=== PATIENT | male | born 1935 | race Caucasian/White ===

== ENCOUNTER → 2017-08-22 | Outpatient (REF) | payer MEDICARE ==
[~2017-08-22] MED LIST: AMLO-98 PO; ASPI-1471 PO; DONE10TA64 PO; MEMA10TA19 PO; OLAN2.5T20 PO
== END ==
LOC: ZZLCC 20:29
PROVIDERS: ATTEND Family Medicine
DX: R42 Dizziness and giddiness (principal)
CPT/HCPCS: 82040; 82247; 82310; 82374; 82435; 82565; 82947; 84075; 84132; 84155; 84295; 84443; 84450; 84460; 84520; 85027

== ENCOUNTER → 2017-09-06 | Outpatient (REF) | payer MEDICARE, BC | LOC: ZZLCC 11:20 | PROVIDERS: ATTEND Family Medicine | DX: N39.0 Urinary tract infection, site not specified (principal) | CPT/HCPCS: 82040; 82247; 82310; 82374; 82435; 82565; 82947; 84075; 84132; 84155; 84295; 84450; 84460; 84520; 85027 ==

== ENCOUNTER 2017-11-16 00:35 | Emergency (ER) | payer BC, MEDICARE ==
[2017-11-16 00:38] VITALS: BP 132/89
--- NOTE | 2017-11-16 00:42 | ER Report ---
History and Physical Time Seen By MD: 00:34 HPI/ROS CHIEF COMPLAINT: Fall HISTORY OF PRESENT ILLNESS: 82-year-old male brought from [facility] after ground-level fall. Patient denies any injuries. On arrival. He states he caught himself so he didn't fall hard. There is some crusted blood at the end of his nose and on his hands. He has movement of all extremities. Patient has dementia. Patient is DO NOT RESUSCITATE. REVIEW OF SYSTEMS: Respiratory: No cough, no dyspnea. Cardiovascular: No chest pain, no palpitations. Gastrointestinal: No vomiting, no abdominal pain. Musculoskeletal: No back pain. Allergies: Coded Allergies: No Known Allergies (Verified Allergy, Unknown, 03/27/11) Home Meds Reported Medications Aspirin (ASPIR 81) 81 Mg Tablet.dr, 1 TAB PO QDAY, TAB 07/24/17 Olanzapine (Zyprexa) 2.5 Mg Tablet, 2.5 MG PO HS, #30 0 Refills 04/04/11 Memantine Hcl (Namenda) 10 Mg Tablet, 10 MG PO BID, #30 0 Refills 04/04/11 Donepezil Hcl (Aricept) 10 Mg Tablet, 10 MG PO BID, #30 0 Refills 04/04/11 Amlodipine Besylate (Amlodipine Besylate) 10 Mg Tablet, 10 MG PO DAILY for 30 Days, 0 Refills 04/04/11 Hx Smoking: No Hx Alcohol Use: No Constitutional Vital Sign - Last 24 Hours 11/16/17 00:38 Temp 97.8 Pulse 65 Resp 19 B/P (MAP) 132/89 Pulse Ox 95 O2 Delivery Room Air Physical Exam General Appearance: The patient is alert, has no immediate need for airway protection and no current signs of toxicity. Palpation of the head and neck reveal no tenderness or trauma HEENT: Pupils equal and round no injection. There is some crusted blood in the right nares. There is no cheryl bleeding. There is no nasal tenderness. Oropharynx is without dental trauma Respiratory: Chest is non tender, lungs are clear to auscultation. No chest wall tenderness Cardiac: regular rate and rhythm Gastrointestinal: Abdomen is soft and non tender, no masses, bowel sounds normal. Musculoskeletal: Neck: Neck is supple and non tender. Extremities have full range of motion and are non tender. Skin: No rashes or lesions. DIFFERENTIAL DIAGNOSIS: After history and physical exam differential diagnosis was considered for fall in the elderly including but not limited to intracranial injury, long bone and pelvic bone fracture, spinal injury, and intrathoracic injury. Medical Decision Making ED Course/Re-evaluation ED Course Patient was admitted to an examination room. H&P was done. The differential diagnoses was considered. On clinical examination. Patient has no obvious signs of injuries. He voices no complaints. He seems to be good spirits. He is alert and oriented. custodial noted that he might be hypotensive. EMS as documented 2 good blood pressures in route. His blood pressure here is normal. I see no indication for diagnostic tests at this time. Patient be returned to the residential. Decision to Disposition Date: Nov 16, 2017 Decision to Disposition Time: 00:40 Depart Departure Latest Vital Signs Vital Signs Date Time Temp Pulse Resp B/P (MAP) Pulse Ox O2 Delivery O2 Flow Rate FiO2 11/16/17 00:38 97.8 65 19 132/89 95 Room Air Impression: Primary Impression: Fall Additional Impressions: Epistaxis Dementia Do not resuscitate Condition: Improved Disposition: HOME OR SELF-CARE Patient Instructions: GENERAL ER DISCHARGE INSTRUCTIONS Additional Instructions: Return to residential, resume previous care Problem Qualifiers Primary Impression: Fall Encounter type: initial encounter Qualified Codes: W19.XXXA - Unspecified fall, initial encounter Additional Impressions: Dementia Dementia type: unspecified type Dementia behavioral disturbance: without behavioral disturbance Qualified Codes: F03.90 - Unspecified dementia without behavioral disturbance NAOMI ORTEGA DO Nov 16, 2017 00:42
== END 2017-11-16 00:55 | disposition home or self-care (01) ==
LOC: ER 00:44
DX: R04.0 Epistaxis (principal); F03.90 Unspecified dementia, unspecified severity, without behavioral disturbance, psychotic disturbance, mood disturbance, and anxiety; W17.89XA Other fall from one level to another, initial encounter
CPT/HCPCS: 99281

== ENCOUNTER → 2017-11-16 | Outpatient (CLI) | payer MEDICARE | LOC: AMB 01:01 | PROVIDERS: ATTEND Nurse Practitioner | DX: R53.1 Weakness (principal) | CPT/HCPCS: A0425; A0428 ==

== ENCOUNTER → 2017-11-16 | Outpatient (CLI) | payer MEDICARE | LOC: AMB 00:16 | PROVIDERS: ATTEND Nurse Practitioner | DX: R53.1 Weakness (principal); I95.9 Hypotension, unspecified; W19.XXXA Unspecified fall, initial encounter; Y93.9 Activity, unspecified; Y92.9 Unspecified place or not applicable; Y99.9 Unspecified external cause status | CPT/HCPCS: A0425; A0429 ==

== ENCOUNTER → 2018-01-14 | Outpatient (REF) | payer MEDICARE, MEDICAID ==
[2018-01-14 14:51] LABS: PLATELET COUNT, AUTOMATED 149 K/uL (150-450)
== END ==
LOC: ZZLCC 14:44
PROVIDERS: ATTEND Family Medicine
DX: R50.9 Fever, unspecified (principal); R52 Pain, unspecified
CPT/HCPCS: 82040; 82247; 82310; 82374; 82435; 82565; 82947; 84075; 84132; 84155; 84295; 84450; 84460; 84520; 85025

== ENCOUNTER → 2018-02-12 | Outpatient (REF) | payer MEDICARE, MEDICAID | LOC: ZZLCC 10:23 | PROVIDERS: ATTEND Family Medicine | DX: M62.81 Muscle weakness (generalized) (principal); R41.82 Altered mental status, unspecified; D64.9 Anemia, unspecified; M54.5 Low back pain | CPT/HCPCS: 82040; 82247; 82310; 82374; 82435; 82565; 82607; 82947; 84075; 84132; 84155; 84295; 84450; 84460; 84520; 85027 ==

== ENCOUNTER → 2018-08-10 | Outpatient (REF) | payer MEDICARE ==
[~2018-08-10] MED LIST changes: +ACET-2146 PO; +DICL100G39 TOP; +FLUT16SP19 NS; +LIDO700A19 TOP; +[UNRECOGNIZED DRUG - CODE] PO
== END ==
LOC: ZZLCC 07:35
PROVIDERS: ATTEND Family Medicine
DX: R41.0 Disorientation, unspecified (principal)
CPT/HCPCS: 82310; 82374; 82435; 82565; 82947; 84132; 84295; 84520; 85027